=== PATIENT | male | born 1965 | race Caucasian/White ===

== ENCOUNTER → 2019-09-04 14:12 | Outpatient (BNVA) | payer MEDICARE, MEDICAID, SELFPAY | PROVIDERS: Family Provider Family Medicine; PCP Nurse Practitioner Family; Visit Provider Anesthesiology | DX: G89.29 Other chronic pain (principal); M46.96 Unspecified inflammatory spondylopathy, lumbar region; M47.816 Spondylosis without myelopathy or radiculopathy, lumbar region; M48.061 Spinal stenosis, lumbar region without neurogenic claudication; M48.02 Spinal stenosis, cervical region; F17.210 Nicotine dependence, cigarettes, uncomplicated; Z79.891 Long term (current) use of opiate analgesic | CPT/HCPCS: 99214 ==

== ENCOUNTER → 2019-10-10 14:22 | Outpatient (BNVA) | payer MEDICARE, MEDICAID, SELFPAY | PROVIDERS: Family Provider Family Medicine; PCP Nurse Practitioner Family; Visit Provider Nurse Practitioner Family | DX: R09.81 Nasal congestion (principal); J06.9 Acute upper respiratory infection, unspecified | CPT/HCPCS: 87804 ==

== ENCOUNTER → 2019-10-17 10:33 | Outpatient (BNVA) | payer MEDICARE, MEDICAID, SELFPAY | PROVIDERS: Family Provider Family Medicine; PCP Nurse Practitioner Family; Visit Provider Anesthesiology | DX: G89.29 Other chronic pain (principal); M48.02 Spinal stenosis, cervical region; M47.816 Spondylosis without myelopathy or radiculopathy, lumbar region; M48.061 Spinal stenosis, lumbar region without neurogenic claudication; M46.96 Unspecified inflammatory spondylopathy, lumbar region; M54.6 Pain in thoracic spine; F17.210 Nicotine dependence, cigarettes, uncomplicated; Z79.891 Long term (current) use of opiate analgesic | CPT/HCPCS: 99214 ==

== ENCOUNTER → 2020-02-12 10:48 | Outpatient (BNVA) | payer MEDICARE, MEDICAID, SELFPAY | PROVIDERS: Family Provider Family Medicine; PCP Nurse Practitioner Family; Visit Provider Anesthesiology | DX: G89.29 Other chronic pain (principal); M47.816 Spondylosis without myelopathy or radiculopathy, lumbar region; M48.02 Spinal stenosis, cervical region; M54.6 Pain in thoracic spine; M48.061 Spinal stenosis, lumbar region without neurogenic claudication; M46.96 Unspecified inflammatory spondylopathy, lumbar region; F17.210 Nicotine dependence, cigarettes, uncomplicated; Z79.891 Long term (current) use of opiate analgesic; Z71.6 Tobacco abuse counseling | CPT/HCPCS: 99214 ==

== ENCOUNTER → 2020-04-16 10:44 | Outpatient (BNVA) | payer MEDICARE, MEDICAID, SELFPAY | PROVIDERS: Family Provider Family Medicine; PCP Nurse Practitioner Family; Visit Provider Nurse Practitioner | DX: G89.29 Other chronic pain (principal); M46.96 Unspecified inflammatory spondylopathy, lumbar region; M48.061 Spinal stenosis, lumbar region without neurogenic claudication; M47.816 Spondylosis without myelopathy or radiculopathy, lumbar region; M54.6 Pain in thoracic spine; M48.02 Spinal stenosis, cervical region; F17.210 Nicotine dependence, cigarettes, uncomplicated; Z79.891 Long term (current) use of opiate analgesic; Z71.6 Tobacco abuse counseling | CPT/HCPCS: 99213; 99214 ==

== ENCOUNTER → 2020-06-24 10:20 | Outpatient (BNVA) | payer MEDICARE, MEDICAID, SELFPAY | PROVIDERS: Family Provider Family Medicine; PCP Nurse Practitioner Family; Visit Provider Anesthesiology | DX: G89.29 Other chronic pain (principal); M47.816 Spondylosis without myelopathy or radiculopathy, lumbar region; M48.061 Spinal stenosis, lumbar region without neurogenic claudication; M46.96 Unspecified inflammatory spondylopathy, lumbar region; M54.6 Pain in thoracic spine; M48.02 Spinal stenosis, cervical region; F17.210 Nicotine dependence, cigarettes, uncomplicated; Z79.891 Long term (current) use of opiate analgesic; Z71.6 Tobacco abuse counseling | CPT/HCPCS: 99214 ==

== ENCOUNTER → 2020-08-29 10:52 | Outpatient (BNVA) | payer MEDICARE, MEDICAID, SELFPAY | PROVIDERS: Family Provider Family Medicine; PCP Nurse Practitioner Family; Visit Provider Anesthesiology | DX: G89.29 Other chronic pain (principal); M48.02 Spinal stenosis, cervical region; M47.816 Spondylosis without myelopathy or radiculopathy, lumbar region; M48.061 Spinal stenosis, lumbar region without neurogenic claudication; M46.96 Unspecified inflammatory spondylopathy, lumbar region; M54.6 Pain in thoracic spine; F17.210 Nicotine dependence, cigarettes, uncomplicated; Z79.891 Long term (current) use of opiate analgesic | CPT/HCPCS: 99214 ==

== ENCOUNTER → 2020-10-10 13:11 | Outpatient (BNVA) | payer MEDICARE, MEDICAID, SELFPAY | PROVIDERS: Family Provider Family Medicine; PCP Nurse Practitioner Family; Visit Provider Surgery | DX: Z20.822 Contact with and (suspected) exposure to COVID-19 (principal); K92.1 Melena | CPT/HCPCS: 87635 ==

== ENCOUNTER 2020-10-14 07:57 | Day surgery (SDC) | payer MEDICARE, MEDICAID, SELFPAY ==
[2020-10-10 08:50] VITALS: BMI 29.0
[2020-10-14 08:35] LABS: Glucose Point of Care 123 mg/dL (70-110)
[2020-10-14 08:40] VITALS: BP 102/69; PULSE 58; RESP 18; TEMP 36.6; O2SAT 94
[2020-10-14] MEDS: sodium chloride 0.9% 1,000 ML 30 ML IV (08:46)
--- NOTE | 2020-10-14 08:52 | W.PM.OPSUD ---
Surgery/Procedure H&P Update DATE OF PROCEDURE: October 14, 2020 DATE H&P PERFORMED: 10/06/20 H&P UPDATE INFORMATION: I have reviewed H&P completed within last 30 days, I have examined patient prior to procedure and No changes to prior documentation PREOP DIAGNOSIS: diagnostic PLANNED PROCEDURE: Operation Date: 10/14/20 09:00 Proposed Procedures p Colonoscopy 44256 K92.1(Not Applicable) - Deion Mullen MD
--- NOTE | 2020-10-14 10:36 | ANES.PREANE2 ---
Pre-Anesthetic Assessment Pre-Anesthetic Assessment: Height/Weight: Height 1.68 m Weight 81.647 kg Temp Pulse Resp BP Pulse Ox 97.8 F 58 L 18 102/69 94 10/14/20 08:40 10/14/20 08:40 10/14/20 08:40 10/14/20 08:40 10/14/20 08:40 Preop Diagnosis: diagnostic Proposed Procedure: Operation Date: 10/14/20 09:00 Proposed Procedures p Colonoscopy 80199 K92.1(Not Applicable) - Deion Mullen MD Familial anesthetic complications: none Was Beta Cyndie taken within 24 hours: Yes Last intake: Intake Last Liquid Date 10/13/20 Last Solid Date 10/12/20 Last Intake: 23:00 Social: Social History: Tobacco and No alcohol Packs per day: 1ppd Pack years: 40+ Exam: Pre-Anes Outpt Exam: alert, oriented x 3 and clear to auscultation bilaterally (scattered ty wheezes) Airway: Submandibular: WNL Cervical ROM: WNL MP: 1 Dentition: False Pulmonary: Pulmonary: Asthma and COPD CV/HEM: CV/HEM: HTN : : None reported Hepatic: Hepatic: None reported GI: GI: GERD (controlled) Metabolic: Metabolic: DM Musc/skel: Musc/skel: Lower Back Pain and OA/DJD Neuropsych: Neuropsych: Anxiety, Depression, JIMÉNEZ and TIA (2011) Anesthetic Plan: ASA status: 3 Anesthesia: MAC Meds/Allergies Current Medications: Current Medications Generic Name Dose Route Start Last Admin Trade Name Freq PRN Reason Stop Dose Admin Sodium Chloride 1,000 mls @ 30 ml s/hr 10/14/20 08:15 10/14/20 08:46 Sodium Chloride 0.9% IV 10/15/20 08:14 30 mls/hr .Q24H JANICE Administration PFSH Anesthesia PFSH: Medical History (Updated 10/06/20 @ 11:04 by Deion Mullen MD) Bipolar disorder Cervical radiculopathy Colon polyps DDD (degenerative disc disease) Degenerative cervical spinal stenosis Degenerative lumbar spinal stenosis Diabetes mellitus Facet syndrome, lumbar Lumbar spondylitis Surgical History (Updated 10/06/20 @ 11:04 by Deion Mullen MD) H/O colonoscopy (~09/2015) S/P carpal tunnel release BILATERAL S/P neck surgery, follow-up exam DR. STEVENS 10/28/2008C5-C7 S/P routine circumcision Family History Other Diabetes Hypertension Social History Smoking and tobacco status: current every day smoker cigarettes Packs smoked per day: 1 Quit status (tobacco): considering quitting Second hand smoke exposure: Yes Alcohol intake: never History of recent travel: No Data Anesthesia Other Labs: Laboratory Results - last 48 hr 10/14/20 08:29 POC Glucose 123 H Cardiac Studies: No Data to Display
[2020-10-14 11:05] VITALS: BP 87/56; PULSE 54; RESP 16; TEMP 36.1; O2SAT 96
[2020-10-14 11:16] VITALS: BP 94/57; PULSE 56; RESP 18; O2SAT 95
--- NOTE | 2020-10-14 21:32 | ANE.PACU2 ---
Inpatient post-anesthesia follow up: Airway intact: Yes Vital signs: Temperature 97 F Pulse Rate 56 Respiratory Rate 18 Blood Pressure 94/57 Pulse Oximetry 95 Oxygen Delivery Me thod Room Air Oxygen Flow Rate 2 Fraction of Inspir ed Oxygen Hydration adequate: Yes Nausea and vomiting: No Pain level: 2 Mental status: Baseline
== END 2020-10-14 11:28 | disposition home or self-care (01) ==
PROVIDERS: PCP Nurse Practitioner Family; Visit Provider Surgery
PROC: 0DJD8ZZ Inspection of Lower Intestinal Tract, Via Natural or Artificial Opening Endoscopic (ICD-10-PCS; CPT 45378; principal; 2020-10-14 09:00)
DX: K92.1 Melena (principal); K57.30 Diverticulosis of large intestine without perforation or abscess without bleeding; Z79.82 Long term (current) use of aspirin; E11.9 Type 2 diabetes mellitus without complications; Z79.84 Long term (current) use of oral hypoglycemic drugs; Z86.010 Personal history of colon polyps; F17.210 Nicotine dependence, cigarettes, uncomplicated; J44.9 Chronic obstructive pulmonary disease, unspecified; I10 Essential (primary) hypertension; K21.9 Gastro-esophageal reflux disease without esophagitis; M19.90 Unspecified osteoarthritis, unspecified site; Z86.73 Personal history of transient ischemic attack (TIA), and cerebral infarction without residual deficits
CPT/HCPCS: 36416; 45380; 82962; 88305; 96360; 96361; J2704; J7030

== ENCOUNTER → 2020-10-17 12:55 | Outpatient (BNVA) | payer MEDICARE, MEDICAID, SELFPAY | PROVIDERS: PCP Nurse Practitioner Family; Visit Provider Anesthesiology | DX: G89.29 Other chronic pain (principal); M47.816 Spondylosis without myelopathy or radiculopathy, lumbar region; M48.061 Spinal stenosis, lumbar region without neurogenic claudication; M54.6 Pain in thoracic spine; M46.96 Unspecified inflammatory spondylopathy, lumbar region; M48.02 Spinal stenosis, cervical region; F17.210 Nicotine dependence, cigarettes, uncomplicated; Z79.891 Long term (current) use of opiate analgesic | CPT/HCPCS: 99214 ==

== ENCOUNTER → 2020-12-16 12:59 | Outpatient (BNVA) | payer MEDICARE, MEDICAID, SELFPAY | PROVIDERS: PCP Nurse Practitioner Family; Visit Provider Nurse Practitioner | DX: G89.29 Other chronic pain (principal); M48.061 Spinal stenosis, lumbar region without neurogenic claudication; M47.816 Spondylosis without myelopathy or radiculopathy, lumbar region; M46.96 Unspecified inflammatory spondylopathy, lumbar region; M54.6 Pain in thoracic spine; M48.02 Spinal stenosis, cervical region; F17.210 Nicotine dependence, cigarettes, uncomplicated; Z79.891 Long term (current) use of opiate analgesic; Z71.6 Tobacco abuse counseling | CPT/HCPCS: 99213; 99214 ==

== ENCOUNTER 2021-02-02 08:36 | Outpatient (CLI) | payer MEDICARE, MEDICAID, SELFPAY ==
--- NOTE | 2021-02-02 08:46 | US_ITS ---
WS: [id number] Complete ABDOMINAL ULTRASOUND HISTORY: EPIGASTRIC ABDOMINAL PAIN COMPARISON: None available. Liver: 13.6 cm in length. Liver is normal size and echogenicity with no mass or intrahepatic dilatati on. Gallbladder: Normally distended with no gallstones, wall thickening or pericholecystic fluid. Gallbladder wall thickness: 0.2 cm. Pancreas: Poorly visualized. CBD: 0.3 cm. Right kidney: 9.5 cm x 4.6 cm x 4.9 cm. No mass, cortical thickening or hydronephrosis. Left kidney: 9.9 cm x 4.7 cm x 3.9 cm. No mass, cortical thickening or hydronephrosis. Spleen: Normal size and echogenicity. Abdominal aorta and IVC are within normal limits. No ascites. US/US abdomen complete* [id number] IMPRESSION: Unremarkable abdominal ultrasound. Pancreas is poorly visualized.
--- NOTE | 2021-02-02 08:46 | CT_ITS ---
WS: [id number] LDCT LUNG CANCER SCREENING HISTORY: TOBACCO ABUSE DISORDER TECHNIQUE: Axial imaging performed from the apices to 1 cm below the costophrenic angles. Coronal and sagittal reformats are submitted with axial MIP series. All CT scans at [facility] use at least one of these dose optimization techniques: automated exposure control; mA and/or kV adjustment per patient size (includes targeted exams where dose is matched to clinical indication); or iterativ e reconstruction. DLP: 52.21 mGy.cm DIvol: 1.58 mGy COMPARISON: CT thoracic spine 06/03/2017 Diagnostic quality: Satisfactory Lung Nodules: No new pulmonary nodules. Irregular opacification at the RIGHT lung base measures 10 x 5 mm and was present on a prior CT of 06/03/2017. There is additional very mild thickening along the fissures. Lungs: Mild thickening of interstitium bilaterally. No endobronchial lesion. Heart: Normal size heart. Dense calcification in the LEFT descending coronary artery. No pericardial effusion. Other findings: Mild ectasia and atherosclerosis aorta. Pulmonary artery size is also mildly prominen t measuring 2.9 cm. Several small mediastinal and hilar lymph nodes. Chronic anterior wedging of T9 b y 10%. CT/CT lung screening [id number] IMPRESSION: LUNG-RADS: 1-Negative FOLLOW UP: 12 Month: Continue annual screening with LDCT OTHER FINDINGS (S MODIFIER): None.
== END 2021-02-02 08:37 | disposition home or self-care (01) ==
PROVIDERS: PCP Nurse Practitioner Family; Visit Provider Nurse Practitioner Family
DX: Z12.2 Encounter for screening for malignant neoplasm of respiratory organs (principal); R10.13 Epigastric pain; F17.210 Nicotine dependence, cigarettes, uncomplicated; I70.0 Atherosclerosis of aorta; I77.819 Aortic ectasia, unspecified site
CPT/HCPCS: 71271; 76700

== ENCOUNTER → 2021-02-24 12:43 | Outpatient (BNVA) | payer MEDICARE, MEDICAID, SELFPAY | PROVIDERS: PCP Nurse Practitioner Family; Visit Provider Nurse Practitioner | DX: G89.29 Other chronic pain (principal); M48.061 Spinal stenosis, lumbar region without neurogenic claudication; M47.816 Spondylosis without myelopathy or radiculopathy, lumbar region; M46.96 Unspecified inflammatory spondylopathy, lumbar region; M54.6 Pain in thoracic spine; M48.02 Spinal stenosis, cervical region; F17.210 Nicotine dependence, cigarettes, uncomplicated; Z79.891 Long term (current) use of opiate analgesic; Z71.6 Tobacco abuse counseling | CPT/HCPCS: 99213; 99214; 99406 ==

== ENCOUNTER 2021-02-25 10:02 | Outpatient (CLI) | payer MEDICARE, MEDICAID, SELFPAY ==
--- NOTE | 2021-02-25 10:07 | US_ITS ---
WS: [id number] SCROTAL ULTRASOUND EXAMINATION CLINICAL INFORMATION: PAIN IN RIGHT TESTICLE COMPARISON: None. FINDINGS: TESTES Normal in size and echotexture, without focal lesion. Incidental left Rete Testis. Color Doppler: Normal color Doppler flow pattern. Right testes size: 4.2 cm x 3.0 cm x 2.5 cm. Left testes size: 3.6 cm x 2.5 cm x 2.3 cm. EPIDIDYMIDES Normal in size and echotexture, without focal lesion. Color Doppler: Normal color Doppler flow pattern. Right epididymis size: 0.7 cm x 0.8 cm x 1.2 cm. Left epididymitis size: 0.6 cm x 0.9 cm x 1.0 cm. HYDROCELE Bilateral VARICOCELE Large left varicocele measuring approximately 4.1 x 1.3 cm. OTHER FINDINGS None. US/US scrotum [id number] IMPRESSION: 1. Testicles are normal in size and vascularity with normal echotexture. 2. Small bilateral hydroceles. 3. Large left scrotal varicocele measuring 4.1 x 1.3 cm. 4. Normal epididymis bilaterally.
== END 2021-02-25 10:03 | disposition home or self-care (01) ==
PROVIDERS: PCP Nurse Practitioner Family; Visit Provider Nurse Practitioner Family
DX: N50.811 Right testicular pain (principal); N43.3 Hydrocele, unspecified; I86.1 Scrotal varices
CPT/HCPCS: 76870

== ENCOUNTER → 2021-03-20 09:57 | Outpatient (BNVA) | payer MEDICARE, MEDICAID, SELFPAY | PROVIDERS: PCP Nurse Practitioner Family; Referring Provider Nurse Practitioner Family; Visit Provider Urology | DX: N43.3 Hydrocele, unspecified (principal); Q55.22 Retractile testis; K40.90 Unilateral inguinal hernia, without obstruction or gangrene, not specified as recurrent | CPT/HCPCS: 81003 ==

== ENCOUNTER → 2021-05-08 12:50 | Outpatient (BNVA) | payer MEDICARE, MEDICAID, SELFPAY | PROVIDERS: PCP Nurse Practitioner Family; Visit Provider Anesthesiology | DX: M47.816 Spondylosis without myelopathy or radiculopathy, lumbar region (principal); M48.061 Spinal stenosis, lumbar region without neurogenic claudication; M46.96 Unspecified inflammatory spondylopathy, lumbar region; M48.02 Spinal stenosis, cervical region; F17.210 Nicotine dependence, cigarettes, uncomplicated; Z79.891 Long term (current) use of opiate analgesic | CPT/HCPCS: 99214 ==

== ENCOUNTER → 2021-07-10 11:43 | Outpatient (BNVA) | payer MEDICARE, MEDICAID, SELFPAY | PROVIDERS: PCP Nurse Practitioner Family; Visit Provider Anesthesiology | DX: G89.29 Other chronic pain (principal); M47.816 Spondylosis without myelopathy or radiculopathy, lumbar region; M48.061 Spinal stenosis, lumbar region without neurogenic claudication; M54.2 Cervicalgia; M54.6 Pain in thoracic spine; M46.96 Unspecified inflammatory spondylopathy, lumbar region; M48.02 Spinal stenosis, cervical region; F17.200 Nicotine dependence, unspecified, uncomplicated; Z79.891 Long term (current) use of opiate analgesic; Z71.6 Tobacco abuse counseling | CPT/HCPCS: 99214 ==

== ENCOUNTER → 2021-09-08 13:46 | Outpatient (BNVA) | payer MEDICARE, MEDICAID, SELFPAY | PROVIDERS: PCP Nurse Practitioner Family; Visit Provider Anesthesiology | DX: Z02.89 Encounter for other administrative examinations (principal); G89.29 Other chronic pain; M47.816 Spondylosis without myelopathy or radiculopathy, lumbar region; M48.061 Spinal stenosis, lumbar region without neurogenic claudication; M54.2 Cervicalgia; F17.210 Nicotine dependence, cigarettes, uncomplicated; Z71.6 Tobacco abuse counseling | CPT/HCPCS: 99214 ==

== ENCOUNTER 2022-04-16 14:57 | Outpatient (CLI) | payer MEDICARE, MEDICAID, SELFPAY ==
--- NOTE | 2022-04-16 15:06 | CTR_ITS ---
PROCEDURE INFORMATION: Exam: CT Cervical Spine Without Contrast Exam date and time: 04/16/2022 3:32 PM Age: 57 years old Clinical indication: Other: Cervical ddd; Prior surgery; Patient HX: Chronic low back and neck pain TECHNIQUE: Imaging protocol: Computed tomography of the cervical spine without contrast. Radiation optimization: All CT scans at this facility use at least one of these dose optimization techniques: automated exposure control; mA and/or kV adjustment per patient size (includes targeted exams where dose is matched to clinical indication); or iterative reconstruction. COMPARISON: CT cervical spin wo con* [id number] 06/03/2017 10:25 AM RADIATION DOSE METRICS: Total DLP (mGy-cm): 138.73 FINDINGS: Bones/joints: Anterior spinal fixation of C5, C6 and C7 vertebrae. No acute fracture. No spondylolisthesis Lungs: Lung apices are normal. Soft tissues: Unremarkable. CT/CT cervical spin wo con* [id number] IMPRESSION: No acute abnormality.
--- NOTE | 2022-04-16 15:06 | CTR_ITS ---
PROCEDURE INFORMATION: Exam: CT Lumbar Spine Without Contrast Exam date and time: 04/16/2022 3:32 PM Age: 57 years old Clinical indication: Condition or disease; Disc degeneration; Lumbar region; Patient HX: Chronic low back and neck pain; Additional info: Lumbar ddd TECHNIQUE: Imaging protocol: Computed tomography of the lumbar spine without contrast. Radiation optimization: All CT scans at this facility use at least one of these dose optimization techniques: automated exposure control; mA and/or kV adjustment per patient size (includes targeted exams where dose is matched to clinical indication); or iterative reconstruction. COMPARISON: No relevant prior studies available. RADIATION DOSE METRICS: Total DLP (mGy-cm): 319.37 FINDINGS: Bones/joints: No acute fracture. Normal alignment. L1-L2: Disc bulge. No spinal canal stenosis. No neural foraminal narrowing. L2-L3: Disc bulge. No spinal canal stenosis. Mild bilateral neural foraminal narrowing. L3-L4: Disc bulge. No spinal canal stenosis. moderate bilateral neural foraminal narrowing. L4-L5: Disc bulge. No spinal canal stenosis. severe bilateral neural foraminal narrowing. L5-S1: Disc bulge. No spinal canal stenosis. severe bilateral neural foraminal narrowing. Soft tissues: Unremarkable. CT/CT lumbar spine wo con* [id number] IMPRESSION: Multilevel degenerative disc disease with neural foraminal narrowing. Mild bilateral neural foraminal narrowing at L2-L3, moderate bilateral L3-L4, severe bilateral L4-L5 and L5-S1.
== END 2022-04-16 14:58 | disposition home or self-care (01) ==
LOC: RAD 14:58
PROVIDERS: PCP Family Medicine; Visit Provider General Practice
DX: M51.36 Other intervertebral disc degeneration, lumbar region (principal); M50.30 Other cervical disc degeneration, unspecified cervical region
CPT/HCPCS: 72125; 72131

== ENCOUNTER → 2024-05-16 13:39 | Outpatient (BNVA) | payer MEDICARE, MEDICAID, SELFPAY | PROVIDERS: PCP Family Medicine; Referring Provider Nurse Practitioner Family; Visit Provider Internal Medicine | DX: I49.8 Other specified cardiac arrhythmias (principal); R07.9 Chest pain, unspecified | CPT/HCPCS: 93005; 99204 ==

== ENCOUNTER 2024-05-23 08:53 | Outpatient (CLI) | payer MEDICARE, MEDICAID, SELFPAY ==
--- NOTE | 2024-05-23 09:15 | USCV_ITS ---
Angel Luis Woodall Age: 59 Gender: M : 1965 Exam Date: 05/23/2024 09:41 Ordering Phys: Keo Ashley M.D ([email or web address]) Technologist: ULISES [place] [facility] [place]ication: BLE PAIN AND CRAMPING Risk Factors: Previous Vascular Surgery: RIGHT LEFT BP: 140.0 / BP: 145.0/ 0 0 Waveform Velocity (cm/s) Velocity (cm/s) Waveform Triphasic 128.8 Iliac Prox 98.4 Triphasic Triphasic 121.0 Iliac Mid 102.4 Triphasic Triphasic 137.5 Iliac Distal 93.5 Triphasic Triphasic 95.0 STEAM HAND 58.0 Triphasic Triphasic 98.0 SFA Prox 102.0 Triphasic Triphasic 73.0 SFA Mid 74.0 Triphasic Triphasic 70.0 SFA Dist 65.0 Triphasic Triphasic 63.0 POP 64.0 Triphasic Triphasic 57.0 OUTSIDE B2B SALES 74.0 Triphasic Triphasic 70.0 DPA 51.0 Triphasic 1.0 NORMA 1.0 FINDINGS Minimal plaques at the femoral iliac and femoral arteries bilaterally Normal arterial Doppler waveforms and velocities bilaterally Resting NORMA 1.0 bilaterally CONCLUSIONS 1. Normal resting ABIs of 1.0 bilaterally 2. Minimal plaques and intimal thickening in the iliac and femoral arteries bilaterally. No significant obstructive arterial disease, based on the above findings Dr Lia Perez MD [facility] (Electronically Signed) Final Date: 24 May 2024 08:12 S
== END 2024-05-23 08:54 | disposition home or self-care (01) ==
LOC: RAD 08:54
PROVIDERS: PCP Family Medicine; Visit Provider Internal Medicine
DX: M79.604 Pain in right leg (principal); M79.605 Pain in left leg
CPT/HCPCS: 93925

== ENCOUNTER 2024-06-13 07:13 | Outpatient (CLI) | payer MEDICARE, MEDICAID, SELFPAY ==
--- NOTE | 2024-06-13 | ECG_ITS ---
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 Interpretive Statements LEXISCAN SESTAMIBI STRESS TEST Procedure: At the baseline, the blood pressure was 124/86 mmHg with a heart rate of 63 bpm. The electrocardiogram showed normal sinus rhythm, normal axis with normal ST and T's. The Lexiscan was infused over a period of 20 seconds. A total of 0.4 mg of Lexiscan was infused. The stress phase was continued for a total of 5 minutes. Heart rate was at the end of stress phase was 77 bpm and a blood pressure of 116/73 mmHg. The EKG at the peak infusion revealed normal sinus rhythm with no significant ST-T wave changes. Sestamibi was injected 20 seconds after the Lexiscan infusion. Blood pressure at the end of recovery phase was 145/76 mmHg with a heart rate of 80 bpm. Conclusion: 1. Normal EKG response to Lexiscan infusion 2. No Lexiscan induced chest pain or cardiac arrhythmia. 3. Normal blood pressure and heart rate response. 4. Sestamibi/sestamibi perfusion scan pending; see separate report. Electronically Signed On 07-18-2024 18:40:04 SENIOR INTERNAL AUDITOR by Keo Ashley M.D. [email or web address]
[2024-06-13 07:34] VITALS: BMI 28.5
--- NOTE | 2024-06-13 07:34 | NMCV_ITS ---
NM miya perf SPECT r/s* [id number] Angel Luis Woodall Age: 59 Gender: M : 1965 Exam Date: 06/13/2024 08:18 Ordering Phys: Keo Ashley M.D ([email or web address]) Technologist: NOAH Ceja Exam [facility]: [facility] Indications: cp STRESS TEST Please see separate stress test report in [facility] for full findings IMAGE PROTOCOL Rest/Stress 1 Lexiscan Day Radiopharmaceutical Dose (mCi) Administration Site Administered by Rest: Tc-99m 9.8 IV Raiza Bonilla, COLLECT ON DELIVERY CLERK Sestamibi Stress:Tc-99m 32.9 IV Raiza Bonilla, COLLECT ON DELIVERY CLERK Sestamibi Rest: 13-Jun-2024 60 Discovery 630 Stress: 13-Jun-2024 30 Discovery 630 0.4mg Lexiscan. Images obtained in supine and prone position. SPECT RESULTS Technical Quality: Good Raw Data Analysis: Normal Image Corrections: No attenuation or motion correction applied Summed Stress Score: 1 Summed Rest Score: 4 Summed Difference Score: 0 PERFUSION FINDINGS Large area of patchy decreased tracer uptake noted in both stress and rest images in the mid to distal inferior wall suggesive of old myocardial infarction versus scarring FUNCTIONAL RESULTS (calculated via Gated SPECT) Stress Image LV EF (%): 73 Stress EDV (mL):90 TID: 1.27 Stress ESV (mL):24 FUNCTIONAL FINDINGS: There is normal left ventricular systolic function. There appeared to be inferior wall hypokinesis. TID ratio is elevated which could be secondary left ventricular hypertrophy/subendocardial ischemia however cannot rule out multivessel coronary artery disease. IMPRESSIONS Old myocardial infarction versus scarring noted in basal to distal inferior wall without soraida-infarct ischemia, this study is negative for ischemia and low probability for, EKG segment will be documented separately. Larissa Galeas MD (Electronically Signed) Final Date: 13 June 2024 21:04 S
[2024-06-13] MEDS: regadenoson 0.4 Mg/5 ml Syringe IVP (08:59)
[2024-06-13 09:23] VITALS: BP 115/72; PULSE 71
== END 2024-06-13 07:14 | disposition home or self-care (01) ==
PROVIDERS: PCP Family Medicine; Visit Provider Internal Medicine
DX: R07.9 Chest pain, unspecified (principal); R06.02 Shortness of breath
CPT/HCPCS: 36415; 78452; 93017; 96374; A9500; J2785

== ENCOUNTER 2024-06-15 12:20 | Outpatient (CLI) | payer MEDICARE, MEDICAID, SELFPAY ==
--- NOTE | 2024-06-15 12:45 | USCV_ITS ---
Angel Luis Woodall Age: 59 Gender: M : 1965 Exam Date: 06/15/2024 12:45 Ordering Phys: Keo Ashley M.D ([email or web address]) Technologist: [place] [facility] [place]: BP: 130 / 80 HR: 62 Rhythm: Sinus Technical Quality: Adequate MEASUREMENTS (Male / Female) Normal Values 2D ECHO LVOT Diameter 2.0 cm LV Ejection Fraction MOD 4C 62.4 % LV Ejection Fraction MOD 2C 73.2 % LV Ejection Fraction 2C AL 74.3 % LA Diameter 3.1 cm RA Systolic Volume 4C AL 19.4 ml RA Systolic Volume 4C MOD 19.4 ml LA Sys Volume AL 43.5 cm cubed LA Sys Volume Index AL 22.0 cm cubed/m squared Aorta at Sinotubular Diameter 2.5 cm IVC Diameter 1.2 cm M-MODE LA Ao Ratio MM 0.8 AV Cusp Separation MM 1.9 cm DOPPLER AV Peak Velocity 132.0 cm/s LVOT Peak Velocity 94.0 cm/s AV Area Cont Eq vti 2.6 cm squared AV Area Cont Eq pk 2.3 cm squared MV Peak Velocity 101.0 cm/s MV Area PHT 3.9 cm squared Mitral E to A Ratio 1.4 TV Peak Velocity 227.5 cm/s TR Peak Velocity 272.0 cm/s TR Peak Gradient 29.6 mmHg TV Peak E Velocity 61.0 cm/s Right Atrial Pressure 3.0 mmHg Pulmonary Artery Systolic Pressu 32.6 mmHg PV Peak Velocity 105.5 cm/s FINDINGS Left Ventricle Mild left ventricle hypertrophy. Normal LV systolic function. Normal wall motion and thickening. No regional wall motion abnormalities. Estimated LVEF normal 65%. Right Ventricle Normal right ventricular size and systolic function. Right Atrium Normal right atrial size. Left Atrium Normal left atrial size. Mitral Valve Structurally normal mitral valve. Trace mitral valve regurgitation. Aortic Valve Thickened aortic valve. No aortic valve stenosis. Tricuspid Valve Structurally normal tricuspid valve. No tricuspid valve regurgitation. Pulmonic Valve Structurally normal pulmonic valve. Trace pulmonary valve regurgitation. Pericardium No pericardial effusion. Aorta Normal size aortic root and proximal ascending aorta. IVC Normal inferior vena cava. CONCLUSIONS Mild left ventricular hypertrophy. Normal LV systolic function. LVEF normal 65%. No significant valvular abnormality noted. Normal right heart and pulmonary pressures. Gia Jackson MD (Electronically Signed) Final Date: 16 June 2024 12:05 S
== END 2024-06-15 12:21 | disposition home or self-care (01) ==
LOC: RAD 12:21
PROVIDERS: PCP Family Medicine; Visit Provider Internal Medicine
DX: I35.0 Nonrheumatic aortic (valve) stenosis (principal); R06.02 Shortness of breath
CPT/HCPCS: 93306

== ENCOUNTER 2024-07-28 13:48 | Emergency (ER) | payer MEDICARE, MEDICAID, SELFPAY ==
[2024-07-28 13:51] VITALS: BP 131/87; PULSE 77; RESP 17; TEMP 36.7; O2SAT 98; BMI 28.2
--- NOTE | 2024-07-28 14:12 | ED_ITS ---
HPI - Wound/Laceration General: Chief Complaint: Wound/Laceration Stated Complaint: Cut finger Time Seen by Provider: 07/28/24 13:54 Source: patient Mode of arrival: ambulatory Limitations: no limitations History of Present Illness: 59-year-old male states that just prior arrival he was working on a car lacerated his left index finger on a fender. Lacerations of the radial aspect of the finger has minimal pain and has full range of motion bleeding is controlled he is unsure when his last tetanus was. Associated symptoms: Denies fever(s), nausea or vomiting Related Data Home Medications Medication Instructions Recorded Confirmed albuterol sulfate 90 mcg/actuation 1 inh inhalation ONCE 09/03/19 05/16/24 aerosol inhaler (Ventolin HFA) atorvastatin 40 mg tablet (Lipitor) 40 mg PO QDAY 09/03/19 05/16/24 bupropion HCl 100 mg tablet 100 mg PO BID 09/03/19 05/16/24 cetirizine 10 mg capsule 10 mg PO QDAY 09/03/19 05/16/24 finasteride 5 mg tablet 5 mg PO QDAY 09/03/19 05/16/24 hydroxyzine HCl 50 mg tablet 50 mg PO TID 09/03/19 05/16/24 sertraline 50 mg tablet (Zoloft) 50 mg PO QDAY 09/03/19 05/16/24 trazodone 50 mg tablet 50 mg PO QDAY 09/03/19 05/16/24 omega-3 fatty acids 1,000 mg 1,000 mg PO DAILY 04/16/20 05/16/24 capsule (Fish Oil Concentrate) lisinopril 5 mg tablet 10 mg PO QDAY 06/23/20 05/16/24 aspirin 325 mg tablet 325 mg PO DAILY 03/20/21 05/16/24 budesonide 160 mcg-glycopyr 9 2 inh inhalation BID 05/16/24 05/16/24 mcg-formot 4.8 mcg/actuation HFA inhaler (Breztri Aerosphere) ergocalciferol (vitamin D2) 50 mcg 50 mcg PO DAILY 05/16/24 05/16/24 (2,000 unit) tablet fluticasone propionate 50 2 spray intranasal DAILY 05/16/24 05/16/24 mcg/actuation nasal spray,suspension methadone 5 mg tablet 5 mg PO DAILY 05/16/24 05/16/24 tamsulosin 0.4 mg capsule (Flomax) 0.4 mg PO DAILY 05/16/24 05/16/24 testosterone cypionate 200 mg/mL 80 mg SUBCUT Q7D 05/16/24 05/16/24 intramuscular oil Previous Rx's Medication Instructions Recorded nitroglycerin 0.4 mg sublingual 0.4 mg sublingual Q5M PRN chest 06/23/20 tablet pain #25 tabs gabapentin 600 mg tablet 600 mg PO TID 30 days #90 tabs 07/10/21 Allergies Allergy/AdvReac Type Severity Reaction Status Date / Time naproxen [From Aleve] Allergy swelling/it Verified 05/16/24 13:35 cookie/redne ss varenicline [From Chantix] AdvReac DEPRESSION Verified 05/16/24 13:35 INCREASED Review of Systems Const: Denies: fever(s) ENMT: Denies: throat pain or dental pain Card: Denies: chest pain Resp: Denies: dyspnea GI: Denies: abdominal pain, nausea or vomiting Musc: Reports: extremity pain; Denies: neck pain or back pain Skin/Breast: Denies: rash Neuro: Denies: headache(s) PFSH ED PFSH: Medical History Right inguinal hernia Retractile testis Colon polyps Diabetes mellitus Facet syndrome, lumbar DDD (degenerative disc disease) Cervical radiculopathy Degenerative cervical spinal stenosis Lumbar spondylitis Degenerative lumbar spinal stenosis Bipolar disorder Surgical History H/O colonoscopy (10/14/20) 2016 S/P routine circumcision S/P carpal tunnel release BILATERAL S/P neck surgery, follow-up exam DR. STEVENS 10/28/2008C5-C7 Family History Father , AT AGE 76 Unknown family medical history Mother , AT AGE 66 Stroke Other Diabetes Hypertension Social History Smoking and tobacco/nicotine status: current some day tobacco/nicotine user cigarettes Packs smoked per day: 1 Quit status (tobacco/nicotine): considering quitting Second hand smoke exposure: Yes Alcohol intake: never Substance/Drug Use: never Marital status: Current occupational status: employed Physical Exam Const: COMMON NORMALS: no acute distress, patient oriented x3 and healthy appearing HENMT: COMMON NORMALS: normocephalic and atraumatic HEAD & SCALP: normocephalic and atraumatic Eye: COMMON NORMALS: conjunctivae normal CONJUNCTIVA: Yes conjunctivae normal Neck/C-Spine: COMMON NORMALS: full ROM and supple Chest: COMMONS NORMALS: normal inspection of the chest Resp: COMMON NORMALS: normal respiratory effort Cardio: COMMON NORMALS: regular rate RATE: regular rate Extremity: NARRATIVE EXTREMITY EXAM: 2 cm laceration over radial aspect of in dex finger bleeding is controlled no tendon involvement full range of motion distal sensation intact Neuro: COMMON NORMALS: patient oriented x3, moves all extremities and no focal motor deficits Psych: COMMON NORMALS: mental status grossly normal, Normal thought process present and cooperative THOUGHT PROCESS: Normal thought process present Skin: COMMON NORMALS: no rashes or lesions noted GENERAL SKIN EXAM: no rashes or lesions noted Procedures Laceration Laceration 1: Site: hand Side (If applicable): left Size (cm): 3 Description: linear Depth: simple, single layer Local Anesthetic: lidocaine 1% Amount of anesthesia used (mL): 8 Pre-repair: wound explored, irrigated extensively and deep structures intact Skin layer closed with: nylon Size (cm): 5-0 Number of sutures: 3 Technique: simple, interrupted Course Vital Signs: Vital signs: Vital Signs Temperature 98.1 F 07/28/24 13:51 Pulse Rate 77 07/28/24 13:51 Respiratory Rate 17 07/28/24 13:51 Blood Pressure 131/87 07/28/24 13:51 Pulse Oximetry 98 07/28/24 13:51 Oxygen Delivery Me thod Room Air 07/28/24 13:51 MDM - Wound/Laceration Medical Decision Making Patient presents here with finger laceration did repair the laceration he is to have sutures removed in 7 or 8 days did not update his tetanus no signs of tendon involvement stable for discharge follow-up PCP return if worsening. No radiology studies performed this visit Discharge Plan Discharge Patient Disposition: Home Clinical Impression: Laceration Condition: Stable Prescriptions: No Action albuterol sulfate [Ventolin HFA] 90 mcg/actuation HFA aerosol inhaler 1 inh INHALATION ONCE trazodone 50 mg tablet 50 mg PO QDAY bupropion HCl 100 mg tablet 100 mg PO BID finasteride 5 mg tablet 5 mg PO QDAY atorvastatin [Lipitor] 40 mg tablet 40 mg PO QDAY cetirizine 10 mg capsule 10 mg PO QDAY sertraline [Zoloft] 50 mg tablet 50 mg PO QDAY hydroxyzine HCl 50 mg tablet 50 mg PO TID lisinopril 5 mg tablet 10 mg PO QDAY omega-3 fatty acids [Fish Oil Concentrate] 1,000 mg capsule 1,000 mg PO DAILY aspirin 325 mg tablet 325 mg PO DAILY gabapentin 600 mg tablet 600 mg PO TID 30 Days Qty: 90 1RF nitroglycerin 0.4 mg tablet, sublingual 0.4 mg SUBLINGUAL Q5M PRN (Reason: chest pain) Qty: 25 3RF testosterone cypionate 200 mg/mL oil 80 mg SUBCUT Q7D fluticasone propionate 50 mcg/actuation spray,suspension 2 spray intranasal DAILY Rx Instructions: administer into each nostril tamsulosin [Flomax] 0.4 mg capsule 0.4 mg PO DAILY methadone 5 mg tablet 5 mg PO DAILY ergocalciferol (vitamin D2) 50 mcg (2,000 unit) tablet 50 mcg PO DAILY Breztri Aerosphere 160-9-4.8 mcg/actuation HFA aerosol inhaler 2 inh inhalation BID Discharge Orders: Discharge ED (Routine); Ordered 07/28/24 Ordered By: Joie Hendrix Referrals: Gretchen Draper DO [Primary Care Provider] - Discharge Diet: Advance as tolerated Discharge Activity: Resume usual activity Patient Instructions: Care For Your Stitches (ED), Laceration (ED) Activity Restrictions/Additional Instructions: suture removal in 7-8 days Coding Level of Care Code 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
[2024-07-28] MEDS: tetanus-dipt-pertussis 0.5 mL SDV IM (14:30)
[2024-07-28 14:37] VITALS: BP 114/72; PULSE 78; RESP 16; O2SAT 97
== END 2024-07-28 14:36 | disposition home or self-care (01) ==
PROVIDERS: Emergency Provider Emergency Medicine; PCP Family Medicine
DX: S61.211A Laceration without foreign body of left index finger without damage to nail, initial encounter (principal); Z79.82 Long term (current) use of aspirin; F17.210 Nicotine dependence, cigarettes, uncomplicated; E11.9 Type 2 diabetes mellitus without complications; X58.XXXA Exposure to other specified factors, initial encounter
CPT/HCPCS: 12002; 90471; 90715; 99283; 99291

== ENCOUNTER → 2024-09-21 11:12 | Outpatient (BNVA) | payer MEDICARE, MEDICAID, SELFPAY | PROVIDERS: PCP Family Medicine; Visit Provider Internal Medicine | DX: R07.9 Chest pain, unspecified (principal); I10 Essential (primary) hypertension; F17.200 Nicotine dependence, unspecified, uncomplicated; E11.9 Type 2 diabetes mellitus without complications; M54.6 Pain in thoracic spine; G89.29 Other chronic pain | CPT/HCPCS: 99214 ==